=== PATIENT | female | born 1965 | race Caucasian/White ===

== ENCOUNTER 2017-07-02 18:38 | Emergency (ER) | payer SELFPAY ==
[~2017-07-02] VITALS: Ht 162.6 cm; Wt 64.0 kg
[~2017-07-02 18:38] MED LIST: BENA40TA41 PO; METO-429 PO
[2017-07-02 18:56] VITALS: Ht 162.6 cm; Wt 64.0 kg
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
[2017-07-02] MEDS ORDERED: IBUPROFEN 600 MG TAB PO ONE (20:30)
--- NOTE | 2017-07-02 21:40 | RADRPT ---
PROCEDURE: XR Chest. CLINICAL INDICATION: Chest pain. TECHNIQUE: Single frontal view. COMPARISON: None. FINDINGS: There is mild atelectasis at the left lung base and mild eventration of the left hemidiaphragm. The lungs are otherwise clear. The heart size is normal. There is no pleural effusion. There is no pneumothorax. IMPRESSION: 1. Mild atelectasis at the left lung base and mild eventration of the left hemidiaphragm. 2. Otherwise unremarkable chest radiograph. RPTAT: QQ .Bebeto Delgadillo MD, MD Date Time Electronically viewed and signed by .Bebeto Delgadillo MD, MD on 07/02/2017 21:40 .R/
[2017-07-02] MEDS ORDERED: HYDR-906 PO (22:43)
[2017-07-02 23:00] VITALS: BP 130/86; PULSE 78; RESP 17; TEMP 98.1
== END 2017-07-02 23:02 | disposition home or self-care (01) ==
LOC: FTE 18:38
DX: M54.2 Cervicalgia (principal); M54.5 Low back pain; R07.9 Chest pain, unspecified; I10 Essential (primary) hypertension
CPT/HCPCS: 71010; 93005